=== PATIENT | male | born 1970 | race Caucasian/White ===

== ENCOUNTER 2018-09-03 15:31 | Inpatient (IN) ==
--- NOTE | 2018-09-03 15:59 | Emergency Department Note ---
Animal Bite HPI - General Chief Complaint: Animal Bite Stated Complaint: multiple severe dog bites to left leg Time Seen by Provider: 09/03/18 15:39 Source: patient Mode of arrival: ambulatory Limitations: no limitations - History of Present Illness HPI Narrative: severe dog bites to left leg/knee. 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 Patient was seen here 4 days ago for a dog bite to the left arm and had multiple lacerations and sutures, it then got infected despite oral antibiotics and he has been doing IV outpatient vancomycin therapy with some improvement however he has been slight improvement and that still significantly red and swollen. 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 States he just got this [facility] ago [facility] but no results immunizations are current. States the dog has already killed a cat and bit him severely twice. Law enforcement was notified ([facility]). Bleeding controlled with pressure. Tetanus current. no other home treatments - Related Data Previous Rx's Medication Instructions Recorded Ondansetron [Zofran ODT] 4 mg SL Q4-6HP PRN #20 tab 08/28/18 HYDROcodone/APAP 5/325MG [[place] 1 tab PO Q6HP PRN #15 tab 09/01/18 5-325Mg] HYDROcodone/APAP 5/325MG [[place] 1 tab PO Q4HP PRN #20 tab 09/05/18 5-325Mg] Linezolid [Zyvox] 600 mg PO Q12 #24 tab 09/05/18 Rabies Vacc, Human Diploid/Pf 2.5 unit IM WEEKLY #3 vial 09/05/18 [Imovax Rabies Vaccine Vial] amLODIPine [Norvasc] 5 mg PO DAILY #30 tab 09/05/18 Allergies Allergy/AdvReac Type Severity Reaction Status Date / Time No Known Drug Allergies Allergy Verified 09/03/18 15:32 Review of Systems All systems ED: reviewed and negative except as stated. Past Medical History - Past Medical History Medical history: Denies: cancer, CVA, hypertension, myocardial infarction, renal disease Psychiatric history: Reports: anxiety, depression Surgical history ED: Reports: no surgical history - Social History smoking status: Current every day smoker Alcohol use: Reports: Heavy (Usually a 6 pack/day) Drug use: Reports: none, marijuana (Smokes daily.) Physical Exam Limitations: no limitations General appearance: alert Head: atraumatic, normocephalic, normal inspection Eye: Present: normal appearance. Absent: conjunctival injection ENT: mucous membranes moist Chest: Present: symmetric chest wall rise Respiratory: Present: normal lung sounds bilaterally. Absent: respiratory distress, rales/crackles, accessory muscle use Cardiovascular: Present: regular rate, normal heart sounds Extremities: Present: full ROM, normal capillary refill. Absent: normal inspection (please see skin assessment for documentation LLE dog bites) Neurological: Present: alert, oriented X3 Psychiatric: Present: normal affect, normal mood Skin: Present: warm, dry, normal color, other (left arm with suture intact and wound well approximated but continues to have significant redness, edema and warmth throughout the right arm). Absent: intact (left knee with circumfrential lacerations anterior and posterior through dermis and epdidermis with minimal active bleeding, controlled with pressure. all flushed with saline) Course Course Narrative: Dr. Neil with wound care did come see the patient. Suggests his wound be washed out in the OR. He would like us to talk to the hospitalist about admission then they can call him to consult. Vital Signs Temperature 98.2 F 09/03/18 15:31 Pulse Rate 92 H 09/03/18 15:31 Respiratory Rate 16 09/03/18 15:31 Blood Pressure 113/79 09/03/18 15:31 Pulse Oximetry (%) 97 09/03/18 15:31 Temperature 98.6 F 09/05/18 10:48 Pulse Rate 80 09/05/18 10:48 Respiratory Rate 16 09/05/18 10:48 Blood Pressure 148/87 09/05/18 10:48 Pulse Oximetry (%) 98 09/05/18 10:48 Animal Bite - Lab Data Lab results reviewed: Yes I reviewed the patient's lab results. Result diagrams: 09/04/18 03:35 09/05/18 03:40 Lab Results 09/03/18 09/03/18 09/03/18 Range/Units 16:05 16:05 16:05 WBC 8.5 (4.5-11.0) K/mcL RBC 4.01 L (4.50-5.90) M/mcL Hgb 13.4 L (13.5-16.5) g/dL Hct 40.0 L (41.0-55.0) % MCV 99.8 (80.0-100.0) fL MCH 33.6 (26.0-34.0) pg MCHC 33.6 (31.0-36.0) g/dL RDW 14.5 (11.5-14.5) % Plt Count 173 (140-440) K/mcL MPV 8.9 (7.4-10.4) fL Gran % 67.0 (38.0-78.0) % Lymph % (Auto) 23.1 (15.5-49.0) % Becker % (Auto) 8.6 (1.0-12.0) % Eos % (Auto) 1.1 (0.0-7.0) % Baso % (Auto) 0.2 (0.0-2.0) % Gran # 5.7 (1.8-8.0) K/mcL Lymph # (Auto) 2.0 (1.5-4.8) K/mcL Becker # (Auto) 0.7 (0.1-0.9) K/mcL Eos # (Auto) 0.1 (0.0-0.7) K/mcL Baso # (Auto) 0 (0.0-0.3) K/mcL PT (11.9-14.5) sec INR (0.9-1.1) Sodium 143 (133-145) mmol/L Potassium 3.9 (3.3-5.1) mmol/L Chloride 103 (96-108) mmol/L Carbon Dioxide 23 (22-30) mmol/L Anion Gap 17.0 H (8-16) BUN 2 L (6-20) mg/dl Creatinine 0.5 L (0.7-1.2) mg/dl GFR Calculation 130 Glucose 122 H (70-105) mg/dL Calcium 8.4 L (8.6-10.4) mg/dl Total Bilirubin 0.5 (0.0-1.0) mg/dL AST 42 H (0-37) U/l ALT 27 (0-40) U/l Alkaline Phosphatase 103 (39-117) U/L Total Protein 5.9 (5.9-8.4) gm/dL Albumin 3.4 (3.2-5.2) gm/dL Globulin 2.5 (2.2-3.7) gm/dL Albumin/Globulin Ratio 1.4 (1.0-2.3) Ethyl Alcohol 0.275 H (<0.010) gm/dl 09/03/18 Range/Units 16:05 WBC (4.5-11.0) K/mcL RBC (4.50-5.90) M/mcL Hgb (13.5-16.5) g/dL Hct (41.0-55.0) % MCV (80.0-100.0) fL MCH (26.0-34.0) pg MCHC (31.0-36.0) g/dL RDW (11.5-14.5) % Plt Count (140-440) K/mcL MPV (7.4-10.4) fL Gran % (38.0-78.0) % Lymph % (Auto) (15.5-49.0) % Becker % (Auto) (1.0-12.0) % Eos % (Auto) (0.0-7.0) % Baso % (Auto) (0.0-2.0) % Gran # (1.8-8.0) K/mcL Lymph # (Auto) (1.5-4.8) K/mcL Becker # (Auto) (0.1-0.9) K/mcL Eos # (Auto) (0.0-0.7) K/mcL Baso # (Auto) (0.0-0.3) K/mcL PT 12.8 (11.9-14.5) sec INR 1.0 (0.9-1.1) Sodium (133-145) mmol/L Potassium (3.3-5.1) mmol/L Chloride (96-108) mmol/L Carbon Dioxide (22-30) mmol/L Anion Gap (8-16) BUN (6-20) mg/dl Creatinine (0.7-1.2) mg/dl GFR Calculation Glucose (70-105) mg/dL Calcium (8.6-10.4) mg/dl Total Bilirubin (0.0-1.0) mg/dL AST (0-37) U/l ALT (0-40) U/l Alkaline Phosphatase (39-117) U/L Total Protein (5.9-8.4) gm/dL Albumin (3.2-5.2) gm/dL Globulin (2.2-3.7) gm/dL Albumin/Globulin Ratio (1.0-2.3) Ethyl Alcohol (<0.010) gm/dl Disposition Pt seen by REFUGE MANAGER/PA only: Yes Clinical Impression: Dog bite Disposition: Xfer As Inpt ([facility]) Condition: Fair
--- NOTE | 2018-09-03 16:08 | XRay Report ---
CLINICAL INFORMATION: preop COMPARISON: None. FINDINGS: The heart size, mediastinum and pulmonary vessels are unremarkable. The lungs are clear. There are no effusions. The bones and soft tissues are within normal limits. IMPRESSION: Normal chest. Interpreted and Authenticated by: Wale Whyte 09/03/18
[2018-09-03] MEDS ORDERED: 0.9 % SODIUM CHLORIDE 1,000 ML IV ONE (16:12)
[2018-09-03] MEDS ORDERED: HYDROmorphone 2 MG/ML VIAL IV ONE (16:12)
--- NOTE | 2018-09-03 16:26 | Emergency Department Note ---
ED Note Addendum Note Addendum: Agree with the need for consult with wound care. Patient currently getting vancomycin has had another bite from his dog and was evaluated by Dr. Murillo.
[2018-09-03 16:37] LABS: Basophils # (Auto) 0 K/mcL (0.0-0.3); Basophils % (Auto) 0.2 % (0.0-2.0); Eosinophils # (Auto) 0.1 K/mcL (0.0-0.7); Eosinophils % (Auto) 1.1 % (0.0-7.0); Hemoglobin 13.4 g/dL (13.5-16.5); Lymphocytes % (Auto) 23.1 % (15.5-49.0); Mean Cell Volume 99.8 fL (80.0-100.0); Mean Corpuscular HGB Conc 33.6 g/dL (31.0-36.0); Mean Platelet Volume 8.9 fL (7.4-10.4); Monocytes # (Auto) 0.7 K/mcL (0.1-0.9); Monocytes % (Auto) 8.6 % (1.0-12.0); Platelet Count 173 K/mcL (140-440); RBC 4.01 M/mcL (4.50-5.90); Red Cell Distribution Width 14.5 % (11.5-14.5); WBC 8.5 K/mcL (4.5-11.0)
[2018-09-03 16:43] LABS: Prothrombin Time 12.8 sec (11.9-14.5)
[2018-09-03 16:58] LABS: Alcohol,Blood 0.275 gm/dl (<0.010)
[2018-09-03 17:09] LABS: ALT/SGPT 27 U/l (0-40); AST/SGOT 42 U/l (0-37); Albumin 3.4 gm/dL (3.2-5.2); Albumin/Globulin Ratio 1.4 (1.0-2.3); Alkaline Phosphatase 103 U/L (39-117); Bilirubin,Total 0.5 mg/dL (0.0-1.0); Blood Urea Nitrogen 2 mg/dl (6-20); Calcium 8.4 mg/dl (8.6-10.4); Carbon Dioxide 23 mmol/L (22-30); Chloride 103 mmol/L (96-108); Globulin 2.5 gm/dL (2.2-3.7); Glomerular Filtration Rate 130; Glucose 122 mg/dL (70-105); Potassium 3.9 mmol/L (3.3-5.1); Sodium 143 mmol/L (133-145)
--- NOTE | 2018-09-03 17:20 | XRay Report ---
CLINICAL INFORMATION: puncture wounds dog bite COMPARISON: None. FINDINGS: No osseous abnormality. The patellofemoral and tibiofemoral joints are normal with alignment without arthritic change. Extensive gas seen in the posterior and posterior lateral soft tissues over the distal femur. This may be atmospheric from the puncture wound or due to gas-forming organism. IMPRESSION: Extensive soft tissue swelling and gas in the posterior lateral soft tissues. Gas is typically atmospheric related to skin penetration; however, a gas-forming organism causing infection is not excluded. Interpreted and Authenticated by: Wale Whyte 09/03/18
--- NOTE | 2018-09-03 17:48 | Internal Med History&Physical ---
Medical - H&P: HPI Patient information: Note initiated : 09/03/18 at 5:43 pm Service Date, if different from initiated Date: [] Patient: Wale Rossi 48 y/o M admitted on for multiple severe dog bites to left leg. Chief Complaint: [] History of present illness: Mr. Rossi is a 48 year old M 48-year-old male presents the ED with bites the left leg and knee from his friend's dog. The story seems to change to one point it was his dog and now it is his friend's dog and some strangers dog bit him on the arm 6 days ago. Seen in the ED 4 days prior for bite on arm with multiple lacerations then got infected and was switched from Augmentin to IV vancomycin. Per the patient his arm pain/swelling and redness is improving. Dr. narciso pham from the ED who saw the patient would like to take patient to the OR tomorrow for washout. Patient states the first bite happened in a parking lot at [employer] by a strangers dog. Says the most recent attack was from a dog gets a half breed pit bull and it was his friend's dog in his own house. Denies fevers or chills. Had a tetanus shot last week. Review of Systems: Pertinent positives as above. Denies headache/fever/chills/nausea/vomit ing/chest or abdominal pain/cough/dyspnea/diarrhea. Remaining 10 point review of system reviewed negative Medical - H&P: PMH Medical history: - Past Medical History Medical history: Tobacco abuse, alcohol use denies: cancer, CVA, hypertension, myocardial infarction, renal disease Psychiatric history: Reports: anxiety, depression Surgical history ED: Reports: no surgical history - Social History smoking status: Current every day smoker pack per day Alcohol use: Reports: The notes report 6 pack a day but he tells me it is 2-3 b eers a day Drug use: Reports: none, marijuana (Smokes daily.) Medical - H&P: Meds Home Medications Medication Instructions Recorded Confirmed Type Clindamycin HCl [Cleocin] 300 mg PO QID 10 Days #40 cap 08/25/17 09/01/18 Rx Amoxicillin/Potassium Clav 875 mg PO Q12H #14 tab 08/28/18 09/01/18 Rx [Augmentin] Ondansetron [Zofran ODT] 4 mg SL Q4-6HP PRN #20 tab 08/28/18 09/01/18 Rx oxyCODONE/APAP [Percocet 5-325 mg] 1 tab PO Q4H PRN #16 tab 08/28/18 09/01/18 Rx HYDROcodone/APAP 5/325MG [[place] 1 tab PO Q6HP PRN #15 tab 09/01/18 09/01/18 Rx 5-325Mg] Allergies Allergy/AdvReac Type Severity Reaction Status Date / Time No Known Drug Allergies Allergy Verified 09/03/18 15:32 Medical - H&P: Exam - Constitutional Vitals: Temp Pulse Resp BP Pulse Ox 98.2 F 74 18 129/80 98 09/03/18 15:31 09/03/18 17:32 09/03/18 17:32 09/03/18 17:32 09/03/18 17:32 Exam: General: Alert, Awake, No acute Distress Eyes/N/T: EOMI, PEERL, Head/Neck: neck supple, normocephalic atraumatic CV: RRR, No murmurs, Pulm: Clear b/l, no wheezing/rhonchi/rales Abd: soft, nontender, +BS x4 Ext: no clubbing/cyanosis. Left arm with sutures in place from previous laceration with surrounding erythema/edema/mild tenderness -all improved per the patient. Left knee with multiple lacerations, deep. Neuro: Alert, no focal deficits, moves all extremities, CN 2-12 grossly intact, symmetrical strength b/l upper/lower, sensations intact b/l upper/lower Skin: warm/dry Medical - H&P: Reslt - Labs CBC & Chem 7: 09/03/18 16:05 09/03/18 16:05 Labs: Short CBC 09/03/18 Range/Units 16:05 WBC 8.5 (4.5-11.0) K/mcL Hgb 13.4 L (13.5-16.5) g/dL Hct 40.0 L (41.0-55.0) % Plt Count 173 (140-440) K/mcL BMP 09/03/18 16:05 Sodium 143 Potassium 3.9 Chloride 103 Carbon Dioxide 23 BUN 2 L Creatinine 0.5 L Glucose 122 H Calcium 8.4 L Liver Function 09/03/18 Range/Units 16:05 Total Bilirubin 0.5 (0.0-1.0) mg/dL AST 42 H (0-37) U/l ALT 27 (0-40) U/l Alkaline Phosphatase 103 (39-117) U/L Albumin 3.4 (3.2-5.2) gm/dL Medical - H&P: A/P - Narrative A/P Narrative: A: *LLE lacerations from dog bite: *LUE wound infection recent dog bite: recently started on oupt IV vancomycin *Tobacco Abuse *ETOH use: * P: -Vanc/zosyn for now -BC, check PCT -CIWA -Dr. Benítez following, to OR in AM - -Smoking cessation counseling, nicotine patch -ppx: lovenox after OR washout,
[2018-09-03] MEDS ORDERED: cloNIDine HCL 0.1 MG TABLET PO PRN (18:25)
[2018-09-03] MEDS ORDERED: ACETAMINOPHEN 325 MG TABLET PO PRN (18:25)
[2018-09-03] MEDS ORDERED: LORazepam 2 MG/ML VIAL IV PRN (18:25)
[2018-09-03] MEDS ORDERED: chlordiazePOXIDE 25 MG CAPSULE PO PRN (18:25)
[2018-09-03] MEDS ORDERED: ONDANSETRON 4 MG/2 ML VIAL IV PRN (18:25)
[2018-09-03] MEDS ORDERED: IPRATROPIUM/ALBUTEROL 3 ML AMPUL.NEB NEB PRN (18:25)
[2018-09-03 18:42] LABS: Appearance,Urine CLEAR; Bacteria,Urine 0 /hpf (0); Bilirubin,Urine NEG (NEG); Color,Urine STRAW; Culture Indicated,Urine NO; Glucose,Urine (UA) NEGATIVE (NEG); Ketones,Urine NEG (NEG); Leukocyte Esterase,Urine NEG /uL (NEG); Mucus,Urine FEW /hpf (0); Nitrate,Urine NEG (NEG); Protein,Urine NEG (NEG); Specific Gravity,Urine 1.005 (1.000-1.035); Urine Blood NEG mg/dL (<0.03); Urine RBC 0 /hpf (0-1); Urine Squamous Epithelial Cell 0 /hpf (0-4); Urine WBC 1 /hpf (0-4); Urobilinogen,Urine NEG (NEG)
[2018-09-03] MEDS: 0.9 % SODIUM CHLORIDE 1,000 ML IV SCH (19:19)
[2018-09-03] MEDS: NICOTINE 21 MG PATCH TOPICAL SCH (19:41)
[2018-09-03] MEDS: PIPERACILLIN SODIUM/TAZOBACTAM 3.375 GM in DEXTROSE 5% IN WATER 50 ML IV SCH (19:41)
[2018-09-03] MEDS: 0.9 % SODIUM CHLORIDE 10 ML SYRINGE IV SCH ×2 (19:42→22:40)
[2018-09-03] MEDS: HYDROcodone/APAP 5/325MG TABLET PO PRN (20:13)
--- NOTE | 2018-09-03 21:12 | General Surgery Consult Note ---
History of Present Illness Patient information: Note initiated : 09/03/18 at 9:06 pm Service Date, if different from initiated Date: [] Patient: Wale Rossi 48 y/o M admitted on 09/03/18 for multiple severe dog bites to left leg. Chief Complaint: [] Consult date: 09/03/18 Requesting physician: César Veronica (Wound Care. LLE / LUE) History of present illness: 48/M Admitted via ER. H/O Infected dog bite to Left elbow area about 4 days ago. Sutured in ER. Started on oral antibiotics and later changed to IV Vancomycin. Patient was bitten by same dog earlier today, sustained multiple wounds over LEFT lateral knee and upper leg area. Seen in ER and admitted to Med/Surg floor for further care OR wash out and debridement. Reportedly, [facility] and vaccinated and immunizations are current. Patient was given tetanus toxoid injection. Patient smokes cigarettes, marijuana and drinks alcohol daily. 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 Medications and Allergies Home Medications Medication Instructions Recorded Confirmed Type Clindamycin HCl [Cleocin] 300 mg PO QID 10 Days #40 cap 08/25/17 09/03/18 Rx Amoxicillin/Potassium Clav 875 mg PO Q12H #14 tab 08/28/18 09/03/18 Rx [Augmentin] Ondansetron [Zofran ODT] 4 mg SL Q4-6HP PRN #20 tab 08/28/18 09/03/18 Rx HYDROcodone/APAP 5/325MG [[place] 1 tab PO Q6HP PRN #15 tab 09/01/18 09/03/18 Rx 5-325Mg] Allergies Allergy/AdvReac Type Severity Reaction Status Date / Time No Known Drug Allergies Allergy Verified 09/03/18 15:32 Exam Temp Pulse Resp BP Pulse Ox 97.8 F 61 16 168/84 97 09/03/18 19:20 09/03/18 19:20 09/03/18 19:20 09/03/18 19:20 09/03/18 19:20 - General physical appearance well developed, well nourished, no distress, moderate pain - Eyes PERRL, normal ocular movement - ENT normal pinna, normal nares, normal mucosa, no congestion, poor long-term - Head Head exam IM: Present: atraumatic, normal inspection - Neck no masses, no bruits, no venous distension - Cardiovascular Cardiovascular exam IM: Present: normal rate and rhythm - Respiratory normal expansion - Abdomen Abdomen: Present: soft, non tender, bowel sounds - Integumentary Present: other (Resolving inflammatory changes Left Lateral elbow and upper forearm. Multiple laceration LEFT lateral knee and upper leg area, full thickness . Currently NO active bleeders, NO draiange and NO crepitation.) - Neurologic Present: other (C/O Decreased snsation and numbness arouns LEFT 4/5 finger tips. IMPROVING .) - Musculoskeletal Present: normal gait - Psychiatric Present: oriented to time, oriented to person, oriented to place, speech is normal Results - Labs 09/03/18 16:05 09/03/18 16:05 Abnormal lab results 09/03/18 09/03/18 09/03/18 Range/Units 16:05 16:05 16:05 RBC 4.01 L (4.50-5.90) M/mcL Hgb 13.4 L (13.5-16.5) g/dL Hct 40.0 L (41.0-55.0) % Anion Gap 17.0 H (8-16) BUN 2 L (6-20) mg/dl Creatinine 0.5 L (0.7-1.2) mg/dl Glucose 122 H (70-105) mg/dL Calcium 8.4 L (8.6-10.4) mg/dl AST 42 H (0-37) U/l Ethyl Alcohol 0.275 H (<0.010) gm/dl Diabetes panel 09/03/18 Range/Units 16:05 Sodium 143 (133-145) mmol/L Potassium 3.9 (3.3-5.1) mmol/L Chloride 103 (96-108) mmol/L Carbon Dioxide 23 (22-30) mmol/L BUN 2 L (6-20) mg/dl Creatinine 0.5 L (0.7-1.2) mg/dl Glucose 122 H (70-105) mg/dL Calcium 8.4 L (8.6-10.4) mg/dl AST 42 H (0-37) U/l ALT 27 (0-40) U/l Alkaline Phosphatase 103 (39-117) U/L Total Protein 5.9 (5.9-8.4) gm/dL Albumin 3.4 (3.2-5.2) gm/dL Calcium panel 09/03/18 Range/Units 16:05 Calcium 8.4 L (8.6-10.4) mg/dl Albumin 3.4 (3.2-5.2) gm/dL Pituitary panel 09/03/18 Range/Units 16:05 Sodium 143 (133-145) mmol/L Potassium 3.9 (3.3-5.1) mmol/L Chloride 103 (96-108) mmol/L Carbon Dioxide 23 (22-30) mmol/L BUN 2 L (6-20) mg/dl Creatinine 0.5 L (0.7-1.2) mg/dl Glucose 122 H (70-105) mg/dL Calcium 8.4 L (8.6-10.4) mg/dl Adrenal panel 09/03/18 Range/Units 16:05 Sodium 143 (133-145) mmol/L Potassium 3.9 (3.3-5.1) mmol/L Chloride 103 (96-108) mmol/L Carbon Dioxide 23 (22-30) mmol/L BUN 2 L (6-20) mg/dl Creatinine 0.5 L (0.7-1.2) mg/dl Glucose 122 H (70-105) mg/dL Calcium 8.4 L (8.6-10.4) mg/dl Total Bilirubin 0.5 (0.0-1.0) mg/dL AST 42 H (0-37) U/l ALT 27 (0-40) U/l Alkaline Phosphatase 103 (39-117) U/L Total Protein 5.9 (5.9-8.4) gm/dL Albumin 3.4 (3.2-5.2) gm/dL All other labs normal. Assessment and Plan (1) Dog bite of left arm Status: Acute Priority: High Qualifiers: Encounter type: initial encounter Qualified Code(s): S41.152A - Open bite of left upper arm, initial encounter; W54.0XXA - Bitten by dog, initial encounter (2) Laceration of left arm with complication Status: Acute Priority: High Qualifiers: Encounter type: initial encounter Qualified Code(s): S41.112A - Laceration without foreign body of left upper arm, initial encounter (3) Ulnar nerve abnormality Status: Acute Priority: Medium Qualifiers: Laterality: left Qualified Code(s): G56.22 - Lesion of ulnar nerve, left upper limb (4) Infected dog bite Status: Acute Priority: High Comment: LEFT LOWER EXTREMITY SKIN AND SUB CUTNEOUS TISSUE along latral knee, upper leg area . Multiple full thickness woundsbetween 2 to 4 CM sizes. No bleeding at this time. NEEDS pulse lavage irrigation, debridement and suturing in OR.
[2018-09-04] MEDS: 0.9 % SODIUM CHLORIDE 1,000 ML IV SCH (00:05)
[2018-09-04] MEDS: PIPERACILLIN SODIUM/TAZOBACTAM 3.375 GM in DEXTROSE 5% IN WATER 50 ML IV SCH ×5 (00:42→23:12)
[2018-09-04] MEDS: HYDROcodone/APAP 5/325MG TABLET PO PRN ×3 (00:47→23:12)
[2018-09-04] MEDS: 0.9 % SODIUM CHLORIDE 10 ML SYRINGE IV SCH ×3 (05:33→20:44)
[2018-09-04 05:34] LABS: Basophils # (Auto) 0 K/mcL (0.0-0.3); Basophils % (Auto) 0.2 % (0.0-2.0); Eosinophils # (Auto) 0 K/mcL (0.0-0.7); Eosinophils % (Auto) 0.2 % (0.0-7.0); Granulocytes % (Auto) 79.3 % (38.0-78.0); Lymphocytes # (Auto) 1.3 K/mcL (1.5-4.8); Lymphocytes % (Auto) 11.3 % (15.5-49.0); Mean Cell Volume 100.7 fL (80.0-100.0); Mean Corpuscular HGB Conc 33.3 g/dL (31.0-36.0); Mean Platelet Volume 9.3 fL (7.4-10.4); Platelet Count 174 K/mcL (140-440); RBC 3.87 M/mcL (4.50-5.90); Red Cell Distribution Width 14.4 % (11.5-14.5); WBC 11.3 K/mcL (4.5-11.0)
[2018-09-04 05:59] LABS: ALT/SGPT 28 U/l (0-40); AST/SGOT 41 U/l (0-37); Albumin 3.2 gm/dL (3.2-5.2); Albumin/Globulin Ratio 0.9 (1.0-2.3); Alkaline Phosphatase 107 U/L (39-117); Bilirubin,Direct 0.3 mg/dL (0.0-0.3); Blood Urea Nitrogen 4 mg/dl (6-20); Calcium 8.3 mg/dl (8.6-10.4); Carbon Dioxide 23 mmol/L (22-30); Chloride 100 mmol/L (96-108); Globulin 3.5 gm/dL (2.2-3.7); Glomerular Filtration Rate 130; Glucose 98 mg/dL (70-105); Lactate Dehydrogenase 317 U/L (94-250); Magnesium 1.6 mg/dL (1.6-2.5); Phosphorous 3.7 mg/dL (2.7-4.5); Potassium 3.9 mmol/L (3.3-5.1); Sodium 138 mmol/L (133-145); Triglycerides 60 mg/dl (<150); Uric Acid 1.9 mg/dL (2.5-8.0)
[2018-09-04] MEDS ORDERED: VANCOMYCIN PER PHARMACY IV SCH (07:13)
--- NOTE | 2018-09-04 07:13 | Internal Med Progress Note ---
Medical - PN: Subj Patient information: Note initiated : 09/04/18 at 7:11 am Service Date, if different from initiated Date: [] Patient: Wale Rossi 48 y/o M admitted on 09/03/18 for multiple severe dog bites to left leg. Chief Complaint: [] Interval history: Mr. Rossi is a 48 year old M 48-year-old male presents the ED with bites the left leg and knee from his friend's dog. The story seems to change to one point it was his dog and now it is his friend's dog and some strangers dog bit him on the arm 6 days ago. Seen in the ED 4 days prior for bite on arm with multiple lacerations then got infected and was switched from Augmentin to IV vancomycin. Per the patient his arm pain/swelling and redness is improving. Dr. narciso pham from the ED who saw the patient would like to take patient to the OR tomorrow for washout. Patient states the first bite happened in a parking lot at [employer] by a strangers dog. Says the most recent attack was from a dog gets a half breed pitbull and it was his friend's dog in his own house. Denies fevers or chills. Had a tetanus shot last week. 09/04 Slept okay. No new complaints. Lacerations wrapped in dressing. Review of Systems: denies headache/fever/chills/nausea/vomiting/chest or abdominal pain/cough/dyspnea/diarrhea. Otherwise see above. - Constitutional Vitals: Vital Signs Temp Pulse Resp BP Pulse Ox 98.6 F 73 18 166/92 99 09/04/18 03:25 09/04/18 03:25 09/04/18 03:25 09/04/18 03:25 09/04/18 03:25 Period Temp Pulse Resp BP Sys/Estrada Pulse Ox Last 24 Hr 97.8 F-98.8 F 61-92 16-18 113-168/79-103 95-99 Intake and Output 09/03/18 09/04/18 09/04/18 21:59 05:59 13:59 Intake Total 2850 1210 Output Total 1200 1450 Balance 1650 -240 Weight 60.555 kg Intake & Output: Intake & Output 09/03/18 09/04/18 09/04/18 21:59 05:59 13:59 Intake Total 2850 1210 Output Total 1200 1450 Balance 1650 -240 Weight 60.555 kg Intake: IV 1050 50 Sodium Chloride 0.9% 1,000 ml @ 1000 Wide Open IV BOLUS ONE Rx#: [id number] Zosyn 3.375 gm In Dextrose 5% 50 50 in Water 50 ml @ 100 mls/hr IV Q6H [facility] Rx#:[id number] Oral 800 1160 Other 1000 Output: Void Amount 1200 1450 Other: Urine Appearance Clear Clear Urine Color Pale Dark Yellow Urine Odor Normal Normal # Voids 1 Exam: General: Alert, Awake, No acute Distress Eyes/N/T: EOMI, Head/Neck: neck supple, CV: RRR, No murmurs, Pulm: Clear b/l, no wheezing/rhonchi/rales Abd: soft, nontender, +BS x4 Ext: no clubbing/cyanosis. Left arm with sutures in place from previous laceration with surrounding erythema/edema/mild tenderness, improved per patient . left knee with multiple lacerations, deep. Neuro: Alert, no focal deficits, moves all extremities, Skin: warm/dry Medical - PN: Obj Da - Labs CBC & Chem 7: 09/04/18 03:35 09/04/18 03:35 Labs: Abnormal Lab Results 09/04/18 09/04/18 09/03/18 03:35 03:35 16:05 WBC 11.3 H RBC 3.87 L Hgb 13.0 L Hct 39.0 L MCV 100.7 H Gran % 79.3 H Lymph % (Auto) 11.3 L Gran # 9.0 H Lymph # (Auto) 1.3 L [place] # (Auto) 1.0 H Anion Gap BUN 4 L Creatinine 0.5 L Glucose Uric Acid 1.9 L Calcium 8.3 L GGT 99 H AST 41 H Lactate Dehydrogenase 317 H Albumin/Globulin Ratio 0.9 L Ethyl Alcohol 0.275 H 09/03/18 09/03/18 16:05 16:05 WBC RBC 4.01 L Hgb 13.4 L Hct 40.0 L MCV Gran % Lymph % (Auto) Gran # Lymph # (Auto) [place] # (Auto) Anion Gap 17.0 H BUN 2 L Creatinine 0.5 L Glucose 122 H Uric Acid Calcium 8.4 L GGT AST 42 H Lactate Dehydrogenase Albumin/Globulin Ratio Ethyl Alcohol Meds: Medications Acetaminophen (Tylenol) 650 mg PO Q6HP PRN PRN Reason: PAIN/FEVER > 101 Hydrocodone Bitart/Acetaminophen ([place] 5/325mg) 1 tab PO Q4HP PRN PRN Reason: PAIN LEVEL 3-6 Last Admin: 09/04/18 00:47 Dose: 1 tab Documented by: Albuterol/Ipratropium (Duoneb) 3 ml NEB Q4HRT PRN PRN Reason: Bronchospasm Chlordiazepoxide HCl (Librium) 50 mg PO Q4HP PRN PRN Reason: Alcohol Withdrawal Last Admin: 09/04/18 04:04 Dose: 50 mg Documented by: Clonidine HCl (Catapres) 0.1 mg PO Q4HP PRN PRN Reason: Alcohol Withdrawal Folic Acid (Folic Acid) 1 mg PO DAILY [facility] Sodium Chloride (Sodium Chloride 0.9%) 1,000 mls @ 75 mls/hr IV .[id number] [facility] Stop: 09/04/18 07:19 Last Admin: 09/04/18 00:05 Dose: Not Given Documented by: Piperacillin Sod/Tazobactam (Sod 3.375 gm/ Dextrose) 50 mls @ 100 mls/hr IV Q6H [facility]; Protocol Last Admin: 09/04/18 05:35 Dose: 100 mls/hr Documented by: Gentamicin Sulfate 80 mg/Clindamycin Phosphate 600 mg/Bacitracin 50,000 unit/ Sodium Chloride 3,006 mls @ 0 mls/hr IRR PREOP [facility] Stop: 09/04/18 16:00 Iron Carb/Multivit/Substance Abuse Therapist/Folic Acid (Multivitamin W/Minerals) 1 tab PO DAILY [facility] Lorazepam (Ativan) 0 mg IV Q4HP PRN; Protocol PRN Reason: Alcohol Withdrawal Last Admin: 09/04/18 04:21 Dose: 1 mg Documented by: Morphine Sulfate (Morphine) 1 - 4 mg IV Q3HP PRN PRN Reason: PAIN LEVEL > 6 Last Admin: 09/04/18 04:05 Dose: 2 mg Documented by: Nicotine (Nicoderm) 21 mg TOPICAL DAILY@1000 [facility] Last Admin: 09/03/18 19:41 Dose: 21 mg Documented by: Ondansetron HCl (Zofran) 4 mg IV Q6HP PRN PRN Reason: Nausea And Vomiting Last Admin: 09/03/18 22:46 Dose: 4 mg Documented by: Sodium Chloride (Saline Flush) 10 ml IV Q8 [facility] Last Admin: 09/04/18 05:33 Dose: Not Given Documented by: Thiamine HCl (Vitamin B1) 100 mg PO QDAY [facility] Medical - PN: A/P - Time Spent With Patient Total time spent is greater than 50% in coordination of care (as documented) at patient's floor/unit and/or counseling patient: - Narrative A/P Narrative: A: *LLE lacerations from dog bite: *LUE wound infection recent dog bite: recently started on oupt IV vancomycin *Tobacco Abuse *ETOH use: * P: -Vanc/zosyn for now -BC pending -FUNMI -Dr. Benítez following, to OR today -Smoking cessation counseling, nicotine patch -ppx: lovenox after OR washout, Medical - PN: Qual - Stroke Symptom Onset Unknown: No - VTE Deep Vein Thrombosis/Pulmonary Embolism Present on Admission: No
[2018-09-04 08:14] LABS: Band Neutrophils % 3 % (0-10); Eosinophils % (Manual) 1 % (0-7); Lymphocytes % 11 % (15-49); Macrocytosis 1+ (NONE SEEN); Monocytes % (Manual) 9 % (1-12); Platelet Estimate NORMAL (NORMAL); Polychromasia 1+ (NONE SEEN); RBC Morphology ABNORM (NORMAL); Segmented Neutrophils % 76 % (38-78)
[2018-09-04] MEDS: VANCOMYCIN 1,500 MG in 0.9 % SODIUM CHLORIDE 500 ML IV SCH ×2 (08:16→20:44)
[2018-09-04] MEDS: THIAMINE 100 MG TABLET PO SCH (08:24)
[2018-09-04] MEDS: MULTIVIT,THER IRON,CA,FA & MIN 1 TABLET PO SCH (08:24)
[2018-09-04] MEDS: FOLIC ACID 1 MG TABLET PO SCH (08:24)
[2018-09-04] MEDS ORDERED: RABIES IMMUNE GLOBULIN 300 UNIT/2 ML VIAL IM ONE (10:30)
[2018-09-04] MEDS ORDERED: RABIES VACC, HUMAN DIPLOID/PF 2.5 UNIT VIAL IM ONE (11:00)
[2018-09-04] MEDS: NICOTINE 21 MG PATCH TOPICAL SCH (11:41)
[2018-09-04] MEDS ORDERED: GENTAMICIN SULFATE 80 MG, CLINDAMYCIN 600 MG, BACITRACIN 50,000 UNIT in SODIUM CHLORIDE... IRR SCH (14:00)
[2018-09-04] MEDS ORDERED: MIDAZOLAM 2 MG/2 ML VIAL IV ONE (15:15)
[2018-09-04] MEDS ORDERED: KETAMINE 100 MG/ML ML IV ONE (15:15)
[2018-09-04] MEDS ORDERED: PROPOFOL 200 MG/20 ML VIAL IV ONE (15:15)
[2018-09-04] MEDS ORDERED: LIDOCAINE HCL/PF 100 MG/5 ML SYRINGE IV ONE (15:15)
[2018-09-04] MEDS ORDERED: GLYCOPYRROLATE 0.2 MG/ML VIAL IV ONE (15:15)
[2018-09-04] MEDS ORDERED: fentaNYL 250 MCG/5 ML VIAL IV ONE (15:15)
[2018-09-04] MEDS ORDERED: ONDANSETRON 4 MG/2 ML VIAL IV ONE (15:15)
[2018-09-04] MEDS ORDERED: LACTATED RINGERS 1,000 ML IV SCH (16:00)
[2018-09-04] MEDS ORDERED: MEPERIDINE 25 MG/ML SYRINGE IV PRN (16:00)
[2018-09-04] MEDS ORDERED: ONDANSETRON 4 MG/2 ML VIAL IV PRN (16:00)
[2018-09-04] MEDS ORDERED: fentaNYL 100 MCG/2 ML VIAL IV PRN (16:00)
[2018-09-04] MEDS ORDERED: METHOCARBAMOL 1,000 MG/10 ML VIAL IV PRN (16:00)
[2018-09-04] MEDS ORDERED: IPRATROPIUM/ALBUTEROL 3 ML AMPUL.NEB NEB PRN (16:00)
[2018-09-04] MEDS ORDERED: ACETAMINOPHEN 900 MG/90 ML BOTTLE IV ONE (16:00)
[2018-09-04] MEDS ORDERED: LORazepam 2 MG/ML VIAL IV ONE (16:30)
[2018-09-04] MEDS: METOPROLOL TARTRATE 5 MG/5 ML VIAL IV SCH ×2 (16:44→17:02)
--- NOTE | 2018-09-04 17:00 | Brief Operative Note ---
Date of procedure: 09/05/18 Pre-op diagnosis: Acute Dog bite wounds around Left LEFT knee and upper leg. Post-op diagnosis: same Procedure: Wound Explorations, Debridement, Biopsies of devitalized / torn muscle Lateral Gastrocnemius and blood vessels attached to muscle. Pulse lavage irrigations, Wounds approximated with 2-0 Prolene. Palpable DP / PT pulses. Grafts/Implants: No Anesthesia: GETA Findings: Wound Measurements: Left lateral knee / Lower thigh thigh 3.5 x 2 x 3.0 Extends to underlying Muscle and Tendon ( Gastrocnemius ) Left upper lateral leg 2 x 1 x 1.5 Extends to underlying muscle Left medial below patella area 4 x 2 x 0.5 Extends to tendon BACK OF KNEE / Popliteal region 6 x 2.5 x 3.5 CM TORN Muscle Gastrocnemius PROCEDURE: Multiple open wounds exploration ( Dog Bite ) Lavage / Antibiotic irrigation of wounds and POPLITEAL fossa wound. Approximation of muscle / tendon and OPEN WOUND EDGES. Vicryl and Prolene sutures Complications: none Surgeon: Edmar Benítez Estimated blood loss (cc): 30 Specimens Removed/Pathology: other Condition: stable Disposition: PACU (Procedure well tolerated.)
[2018-09-04] MEDS ORDERED: ACETAMINOPHEN 325 MG TABLET PO PRN (17:03)
[2018-09-04] MEDS ORDERED: KETOROLAC TROMETHAMINE 10 MG TABLET PO PRN (17:04)
[2018-09-04] MEDS ORDERED: hydrALAZINE 20 MG/ML VIAL IV ONE (17:08)
[2018-09-04] MEDS ORDERED: hydrALAZINE 20 MG/ML VIAL ONE (17:09)
[2018-09-04] MEDS ORDERED: cloNIDine HCL 0.1 MG TABLET PO PRN (17:20)
[2018-09-04] MEDS ORDERED: hydrALAZINE 20 MG/ML VIAL IV PRN (17:21)
[2018-09-04] MEDS ORDERED: LABETALOL 5 MG/ML ML IV PRN (17:22)
[2018-09-04] MEDS: ENOXAPARIN 40 MG/0.4 ML SYRINGE SQ SCH (17:53)
[2018-09-05] MEDS: PIPERACILLIN SODIUM/TAZOBACTAM 3.375 GM in DEXTROSE 5% IN WATER 50 ML IV SCH (06:05)
[2018-09-05] MEDS: 0.9 % SODIUM CHLORIDE 10 ML SYRINGE IV SCH (06:06)
[2018-09-05 06:07] LABS: Blood Urea Nitrogen 4 mg/dl (6-20); Calcium 8.2 mg/dl (8.6-10.4); Carbon Dioxide 22 mmol/L (22-30); Chloride 100 mmol/L (96-108); Glomerular Filtration Rate 121; Glucose 85 mg/dL (70-105); Potassium 3.9 mmol/L (3.3-5.1); Sodium 136 mmol/L (133-145)
--- NOTE | 2018-09-05 06:56 | Internal Med Progress Note ---
Medical - PN: Subj Patient information: Note initiated : 09/05/18 at 6:53 am Service Date, if different from initiated Date: [] Patient: Wale Rossi 48 y/o M admitted on 09/03/18 for multiple severe dog bites to left leg. Chief Complaint: [] Interval history: Mr. Rossi is a 48 year old M 48-year-old male presents the ED with bites the left leg and knee from his friend's dog. The story seems to change to one point it was his dog and now it is his friend's dog and some strangers dog bit him on the arm 6 days ago. Seen in the ED 4 days prior for bite on arm with multiple lacerations then got infected and was switched from Augmentin to IV vancomycin. Per the patient his arm pain/swelling and redness is improving. Dr. benítez contact from the ED who saw the patient would like to take patient to the OR tomorrow for washout. Patient states the first bite happened in a parking lot at [employer] by a strangers dog. Says the most recent attack was from a dog gets a half breed pitbull and it was his friend's dog in his own house. Denies fevers or chills. Had a tetanus shot last week. 09/04 Slept okay. No new complaints. Lacerations wrapped in dressing. 09/05 No overnight events. Patient feeling well. Had washout yesterday by Dr. Benítez. She states his blood pressure runs high at home but he does not have a PCP and has not been on blood pressure medications in the past. Review of Systems: denies headache/fever/chills/nausea/vomiting/chest or abdominal pain/cough/dyspnea/diarrhea. Otherwise see above. - Constitutional Vitals: Vital Signs Temp Pulse Resp BP Pulse Ox 99.4 F H 84 20 168/96 98 09/05/18 06:32 09/05/18 03:50 09/05/18 06:32 09/05/18 06:32 09/05/18 06:32 Period Temp Pulse Resp BP Sys/Estrada Pulse Ox Last 24 Hr 97.9 F-99.4 F 76-104 12-25 127-186/79-116 97-100 Intake and Output 09/04/18 09/05/18 09/05/18 21:59 05:59 13:59 Intake Total 2840 2050 Output Total 1275 1675 400 Balance 1565 375 -400 Weight 58.513 kg Intake & Output: Intake & Output 09/04/18 09/05/18 09/05/18 21:59 05:59 13:59 Intake Total 2840 2050 Output Total 1275 1675 400 Balance 1565 375 -400 Weight 58.513 kg Intake: IV 140 550 Zosyn 3.375 gm In Dextrose 5% 50 50 in Water 50 ml @ 100 mls/hr IV Q6H [facility] Rx#:[id number] Vancomycin 1,500 mg In Sodium 500 Chloride 0.9% 500 ml @ 333.3 mls/hr IV Q12H [facility] Rx#: [id number] Oral 1500 IV - Manual Only 2700 Output: Void Amount 1275 1675 400 Other: Meal Dinner Percent of Meal Consumed 25% Urine Appearance Clear Clear Urine Color Dark Yellow Bright Yellow Pale Urine Odor Normal Normal Normal # Voids 0 Exam: General: Alert, Awake, No acute Distress Eyes/N/T: EOMI, Head/Neck: neck supple, CV: RRR, No murmurs, Pulm: Clear b/l, no wheezing/rhonchi/rales Abd: soft, nontender, +BS x4 Ext: no clubbing/cyanosis. Left arm with sutures in place from previous laceration with surrounding erythema/edema/mild tenderness, improved per patient . left knee with multiple lacerations, deep. Neuro: Alert, no focal deficits, moves all extremities, Skin: warm/dry Medical - PN: Obj Da - Labs CBC & Chem 7: 09/04/18 03:35 09/05/18 03:40 Labs: Abnormal Lab Results 09/05/18 09/04/18 09/04/18 03:40 03:35 03:35 WBC RBC Hgb Hct MCV Gran % Lymph % (Auto) Gran # Lymph # (Auto) [place] # (Auto) Lymphocytes % 11 L RBC Morphology Abnorm A Polychromasia 1+ A Macrocytosis 1+ A Anion Gap BUN 4 L 4 L Creatinine 0.6 L 0.5 L Glucose Uric Acid 1.9 L Calcium 8.2 L 8.3 L GGT 99 H AST 41 H Lactate Dehydrogenase 317 H Albumin/Globulin Ratio 0.9 L Ethyl Alcohol 09/04/18 09/03/1809/03/19 03:35 16:05 16:05 WBC 11.3 H RBC 3.87 L Hgb 13.0 L Hct 39.0 L MCV 100.7 H Gran % 79.3 H Lymph % (Auto) 11.3 L Gran # 9.0 H Lymph # (Auto) 1.3 L [place] # (Auto) 1.0 H Lymphocytes % RBC Morphology Polychromasia Macrocytosis Anion Gap 17.0 H BUN 2 L Creatinine 0.5 L Glucose 122 H Uric Acid Calcium 8.4 L GGT AST 42 H Lactate Dehydrogenase Albumin/Globulin Ratio Ethyl Alcohol 0.275 H 09/03/18 16:05 WBC RBC 4.01 L Hgb 13.4 L Hct 40.0 L MCV Gran % Lymph % (Auto) Gran # Lymph # (Auto) [place] # (Auto) Lymphocytes % RBC Morphology Polychromasia Macrocytosis Anion Gap BUN Creatinine Glucose Uric Acid Calcium GGT AST Lactate Dehydrogenase Albumin/Globulin Ratio Ethyl Alcohol Meds: Medications Acetaminophen (Tylenol) 650 mg PO Q4-6HP PRN PRN Reason: PAIN/FEVER > 101 Hydrocodone Bitart/Acetaminophen ([place] 5/325mg) 1 tab PO Q4HP PRN PRN Reason: PAIN LEVEL 3-6 Last Admin: 09/04/18 23:12 Dose: 1 tab Documented by: Albuterol/Ipratropium (Duoneb) 3 ml NEB Q4HRT PRN PRN Reason: Bronchospasm Chlordiazepoxide HCl (Librium) 50 mg PO Q4HP PRN PRN Reason: Alcohol Withdrawal Last Admin: 09/04/18 04:04 Dose: 50 mg Documented by: Clonidine HCl (Catapres) 0.1 mg PO Q4HP PRN PRN Reason: SBP>145 Last Admin: 09/04/18 17:46 Dose: 0.1 mg Documented by: Enoxaparin Sodium (Lovenox) 40 mg SQ DAILY [facility] Last Admin: 09/04/18 17:53 Dose: 40 mg Documented by: Folic Acid (Folic Acid) 1 mg PO DAILY [facility] Last Admin: 09/04/18 08:24 Dose: 1 mg Documented by: Hydralazine HCl (Apresoline) 0 mg IV Q2HP PRN PRN Reason: Hypertension Piperacillin Sod/Tazobactam (Sod 3.375 gm/ Dextrose) 50 mls @ 100 mls/hr IV Q6H [facility]; Protocol Last Admin: 09/05/18 06:05 Dose: 100 mls/hr Documented by: Vancomycin HCl 1,500 mg/ (Sodium Chloride) 500 mls @ 333.3 mls/hr IV Q12H [facility] Last Infusion: 09/04/18 22:20 Dose: Infused Documented by: Iron Carb/Multivit/[place]/Folic Acid (Multivitamin W/Minerals) 1 tab PO DAILY [facility] Last Admin: 09/04/18 08:24 Dose: 1 tab Documented by: Ketorolac Tromethamine (Toradol) 10 mg PO Q6HP PRN PRN Reason: Pain Labetalol HCl (Trandate) 0 mg IV Q2HP PRN PRN Reason: Hypertension Lorazepam (Ativan) 0 mg IV Q4HP PRN; Protocol PRN Reason: Alcohol Withdrawal Last Admin: 09/04/18 04:21 Dose: 1 mg Documented by: Morphine Sulfate (Morphine) 1 - 4 mg IV Q3HP PRN PRN Reason: PAIN LEVEL > 6 Last Admin: 09/04/18 12:46 Dose: 2 mg Documented by: Nicotine (Nicoderm) 21 mg TOPICAL DAILY@1000 [facility] Last Admin: 09/04/18 11:41 Dose: 21 mg Documented by: Ondansetron HCl (Zofran) 4 mg IV Q6HP PRN PRN Reason: Nausea And Vomiting Last Admin: 09/03/18 22:46 Dose: 4 mg Documented by: Sodium Chloride (Saline Flush) 10 ml IV Q8 [facility] Last Admin: 09/05/18 06:06 Dose: 10 ml Documented by: Thiamine HCl (Vitamin B1) 100 mg PO QDAY [facility] Last Admin: 09/04/18 08:24 Dose: 100 mg Documented by: Vancomycin HCl (Vancomycin Per Pharmacy) 1 order IV UD [facility]; Protocol Medical - PN: A/P - Time Spent With Patient Total time spent is greater than 50% in coordination of care (as documented) at patient's floor/unit and/or counseling patient: - Narrative A/P Narrative: A: *LLE/Knee multiple lacerations from dog bite: s/p washout by Dr. Benítez (09/04) *LUE wound infection recent dog bite: recently started on oupt IV vancomycin -Pt story changing, is adamant towards me that it was different animals, but to other staff story is changing to be the same dog *Tobacco Abuse: *ETOH use (unclear as to amount, would only admit to 2-3 beers/day to me): *HTN: Admits to elevated blood pressure at home, but does not have a PCP P: -Vanc/zosyn for now -BC pending -CIWA -HRIG/Vaccine given, d/c with remainder of vaccine regimen -Dr. Benítez following -start on norvasc 5mg -Smoking cessation counseling, nicotine patch -ppx: lovenox Medical - PN: Qual - Stroke Symptom Onset Unknown: No - VTE Deep Vein Thrombosis/Pulmonary Embolism Present on Admission: No
--- NOTE | 2018-09-05 08:58 | Discharge Summary ---
Medical - DS: Prov Patient information: Note initiated : 09/05/18 at 8:53 am Service Date, if different from initiated Date: [] Patient: Wale Rossi 48 y/o M admitted on 09/03/18 for multiple severe dog bites to left leg. Chief Complaint: [] Date of admission: 09/03/18 18:07 Discharge date: 09/05/18 Primary care physician: PCP No Consults: 09/03/18 Consult to Physician [CONS] Stat Comment: Consulting Provider: Edmar Benítez Reason For Exam: Physician to Consult Consult to Physician [CONS] Stat Comment: Consulting Provider: César Veronica Reason For Exam: Physician to Consult Medical - DS: Meds - Discharge Medications Prescriptions: amLODIPine [Norvasc] 5 mg PO DAILY #30 tablet HYDROcodone/APAP 5/325MG [[place] 5-325Mg] 1 tab PO Q4HP PRN #20 tablet PRN Reason: Pain Level 3-6 Linezolid [Zyvox] 600 mg PO Q12 #24 tablet Rabies Vacc, Human Diploid/Pf [Imovax Rabies Vaccine Vial] 2.5 unit IM WEEKLY #3 vial Active and Home Medications: Home Medications Clindamycin HCl [Cleocin] 300 mg PO QID 10 Days #40 cap 08/25/17 [Rx Confirmed 09/03/18 Last Taken Unknown] Amoxicillin/Potassium Clav [Augmentin] 875 mg PO Q12H #14 tab 08/28/18 [Rx Confirmed 09/03/18 Last Taken 09/03/18 09:00] Ondansetron [Zofran ODT] 4 mg SL Q4-6HP PRN #20 tab 08/28/18 [Rx Confirmed 09/03/18 Last Taken 09/01/18 18:00] HYDROcodone/APAP 5/325MG [[place] 5-325Mg] 1 tab PO Q6HP PRN #15 tab 09/01/18 [Rx Confirmed 09/03/18 Last Taken 09/03/18 09:00] Home Medications Ondansetron [Zofran ODT] 4 mg SL Q4-6HP PRN #20 tab 08/28/18 [Rx Confirmed 09/03/18 Last Taken 09/01/18 18:00] HYDROcodone/APAP 5/325MG [[place] 5-325Mg] 1 tab PO Q6HP PRN #15 tab 09/01/18 [Rx Confirmed 09/03/18 Last Taken 09/03/18 09:00] Linezolid [Zyvox] 600 mg PO Q12 #24 tablet 09/05/18 [Rx Last Taken Unknown] Rabies Vacc, Human Diploid/Pf [Imovax Rabies Vaccine Vial] 2.5 unit IM WEEKLY #3 vial 09/05/18 [Rx Last Taken Unknown] amLODIPine [Norvasc] 5 mg PO DAILY #30 tablet 09/05/18 [Rx Last Taken Unknown] Medical - DS: Hosp Hospital course: Mr. Rossi is a 48 year old M Mr. Rossi is a 48 year old M 48-year-old male presents the ED with bites the left leg and knee from his friend's dog. The story seems to change to one point it was his dog and now it is his friend's dog and some strangers dog bit him on the arm 6 days ago. Seen in the ED 4 days prior for bite on arm with multiple lacerations then got infected and was switched from Augmentin to IV vancomycin. Per the patient his arm pain/swelling and redness is improving. Dr. benítez contact from the ED who saw the patient would like to take patient to the OR tomorrow for washout. Patient states the first bite happened in a parking lot at [employer] by a strangers dog. Says the most recent attack was from a dog gets a half breed pitbull and it was his friend's dog in his own house. Denies fevers or chills. Had a tetanus shot last week. 09/04 Slept okay. No new complaints. Lacerations wrapped in dressing. 09/05 No overnight events. Patient feeling well. Had washout yesterday by Dr. Muniz. She states his blood pressure runs high at home but he does not have a PCP and has not been on blood pressure medications in the past. Discharge diagnosis: Dog bite with multiple deep lacerations and infection Secondary discharge diagnosis: Tobacco abuse alcohol use hypertension - Time Spent with Patient Total time spent providing and/or coordinating discharge services: Greater than 30 minutes Medical - DS: Exam - Constitutional Vitals: Vital Signs Temp Pulse Resp BP Pulse Ox 09/05/18 06:32 99.4 F H 20 168/96 98 09/05/18 03:50 98.7 F 84 16 158/95 99 09/04/18 23:05 98.2 F 80 16 137/84 98 09/04/18 20:00 79 127/82 09/04/18 19:45 89 137/79 09/04/18 18:29 99 H 133/87 09/04/18 18:15 90 132/91 09/04/18 18:00 95 H 154/94 09/04/18 17:45 83 152/97 99 09/04/18 17:30 93 H 151/85 97 09/04/18 17:15 97.9 F 77 13 157/104 100 09/04/18 17:04 97.9 F 76 15 172/102 100 09/04/18 16:50 97.9 F 87 18 176/100 98 09/04/18 16:40 98.0 F 104 H 12 176/101 100 09/04/18 16:35 98.6 F 99 H 15 183/107 100 09/04/18 16:30 99 H 25 H 178/110 99 09/04/18 16:25 97 H 14 186/116 100 09/04/18 16:22 98.8 F 104 H 16 186/105 100 09/04/18 12:00 98.1 F 16 157/98 99 Intake and Output 09/04/18 09/05/18 09/05/18 21:59 05:59 13:59 Intake Total 2840 2050 50 Output Total 1275 1675 400 Balance 1565 375 -350 Intake: IV 140 550 50 Zosyn 3.375 gm In Dextrose 5% 50 50 50 in Water 50 ml @ 100 mls/hr IV Q6H [facility] Rx#:[id number] Vancomycin 1,500 mg In Sodium 500 Chloride 0.9% 500 ml @ 333.3 mls/hr IV Q12H [facility] Rx#: [id number] Oral 1500 IV - Manual Only 2700 Output: Void Amount 1275 1675 400 Other: Meal Dinner Percent of Meal Consumed 25% Urine Appearance Clear Clear Urine Color Dark Yellow Bright Yellow Pale Urine Odor Normal Normal Normal # Voids 0 Weight 58.513 kg Medical - DS: Data Labs on day of discharge: Labs from last 24 hours 09/05/18 03:40 Sodium 136 Potassium 3.9 Chloride 100 Carbon Dioxide 22 Anion Gap 14.0 BUN 4 L Creatinine 0.6 L GFR Calculation 121 Glucose 85 Calcium 8.2 L Preliminary micro results at discharge 09/03/18 18:54 Blood Culture - Preliminary Blood 09/03/18 18:44 Blood Culture - Preliminary Blood Medical - DS: A/P - Patient/Caregiver Discharge Instructions Activity: increase activity as tolerated Diet: Regular Diet - Follow up Plan Follow up with: Lavern,PCP [Primary Care Provider] - Edmar Benítez MD [Physician] - Disposition: Home, Self-Care Prognosis: Fair Rehab Potential: Fair Overall status at discharge: patient is progressing back to baseline Medical - DS: Qual - VTE Deep Vein Thrombosis/Pulmonary Embolism Present on Admission: No
[2018-09-05] MEDS ORDERED: amLODIPine 5 MG TABLET PO SCH (09:00)
--- NOTE | 2018-09-05 09:13 | General Surgery Progress Note ---
Subjective Narrative: Note initiated : 09/05/18 at 9:10 am Service Date, if different from initiated Date: [] Patient: Wale Rossi 48 y/o M admitted on 09/03/18 for multiple severe dog bites to left leg. Chief Complaint: []Post Operative Day # 1. Looks good and feels well. PAIN left leg and knee region is less. OOB and ambulating. Ate breakfast. Keen to go home. Objective Temp Pulse Resp BP Pulse Ox 99.4 F H 84 20 168/96 98 09/05/18 06:32 09/05/18 03:50 09/05/18 06:32 09/05/18 06:32 09/05/18 06:32 AVSS. No changes YAYA. L/E: Dressings LEFT knee and leg CDI NO N/V deficits of leg, foot and ankle. LEFT Elbow wounds CDI / Approximated. - Additional Data Intake & Output - Last 24 hours: Intake & Output 09/03/18 09/04/18 09/05/18 09/06/18 05:59 05:59 05:59 05:59 Intake Total 4060 5490 50 Output Total 2650 4075 400 Balance 1410 1415 -350 Weight 133 lb 8 oz 129 lb - Labs 09/04/18 03:35 09/05/18 03:40 Diabetes panel 09/05/18 Range/Units 03:40 Sodium 136 (133-145) mmol/L Potassium 3.9 (3.3-5.1) mmol/L Chloride 100 (96-108) mmol/L Carbon Dioxide 22 (22-30) mmol/L BUN 4 L (6-20) mg/dl Creatinine 0.6 L (0.7-1.2) mg/dl Glucose 85 (70-105) mg/dL Calcium 8.2 L (8.6-10.4) mg/dl Calcium panel 09/05/18 Range/Units 03:40 Calcium 8.2 L (8.6-10.4) mg/dl Pituitary panel 09/05/18 Range/Units 03:40 Sodium 136 (133-145) mmol/L Potassium 3.9 (3.3-5.1) mmol/L Chloride 100 (96-108) mmol/L Carbon Dioxide 22 (22-30) mmol/L BUN 4 L (6-20) mg/dl Creatinine 0.6 L (0.7-1.2) mg/dl Glucose 85 (70-105) mg/dL Calcium 8.2 L (8.6-10.4) mg/dl Adrenal panel 09/05/18 Range/Units 03:40 Sodium 136 (133-145) mmol/L Potassium 3.9 (3.3-5.1) mmol/L Chloride 100 (96-108) mmol/L Carbon Dioxide 22 (22-30) mmol/L BUN 4 L (6-20) mg/dl Creatinine 0.6 L (0.7-1.2) mg/dl Glucose 85 (70-105) mg/dL Calcium 8.2 L (8.6-10.4) mg/dl Assessment and Plan (1) Dog bite of left arm Status: Acute Current Visit: No (2) Laceration of left arm with complication Status: Acute Current Visit: No (3) Ulnar nerve abnormality Status: Acute Current Visit: No (4) Infected dog bite Problem details: LEFT LOWER EXTREMITY SKIN AND SUB CUTNEOUS TISSUE along latral knee, upper leg area . Multiple full thickness woundsbetween 2 to 4 CM sizes. No bleeding at this time. NEEDS pulse lavage irrigation, debridement and suturing in OR. Status: Acute Current Visit: No - Narrative A/P Narrative: Assessment: Satisfactory Post Operative Progress. Plan: OK for D/C from wound Care point of view. FULL weight bearing LEFT foot and LEG. 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 seaport planning manager to Notify [facility] Dog Bite and DOG killing cats. ( Stray Dog from [facility] ) RABIES prophylaxis per [facility] policy. F/U at wound care center 09/08/2018 F/U with Dr. Alegria, Plastic Surgeon for LEFT elbow wounds DISCHARGE MEDICATION ANTIBIOTIC: Zyvox 600 MG PO bid FOR 15 DAYS. Pain Medications: Ibuprofen 400 - 600 mg with food PRN 6 Hrly 4 days. Tylenol 650 mg PO PRN 6 Hrly for 5 days. - Time Spent With Patient Total time spent is greater than 50% in coordination of care (as documented) at patient's floor/unit and/or counseling patient: 15 - 24 minutes
--- NOTE | 2018-09-05 10:23 | Operative Note ---
DATE OF OPERATION: 09/04/2018 PREOPERATIVE DIAGNOSIS: Multiple fresh dog bite wounds around the left knee lateral posterior and left upper leg area. POSTOPERATIVE DIAGNOSIS: Multiple fresh dog bite wounds around the left knee lateral posterior and left upper leg area. OPERATION: Multiple wound explorations, debridement, biopsy of devitalized tissue, torn muscle and blood vessels and pulse lavage irrigation with antibiotics. Wounds approximated with 2-0 Prolene and 2-0 Vicryl for the muscles and fascia. SURGEON: Edmar Benítez M.D. SURGICAL FINDINGS: At the completion of procedure, patient had palpable dorsalis pedis and posterior tibial pulses. ANESTHESIA: General endotracheal. ANESTHESIOLOGIST: Obie Velasquez M.D. WOUND DIMENSIONS: For details of wound measurements and procedure, please refer to the patient's EHR. All the measurements are entered in there. 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 He sustained an accidental dog bites on 08/28/2018. This was involving the left elbow area. It was dealt with by Dr. Freddie Alegria, plastic surgeon. The patient underwent debridement and approximation of the wound and skin edges. He had evidence of ulnar nerve injury, probably a neuropraxia or partial nerve fiber tear. This is gradually improving over a period of time. The elbow wounds were left alone. The patient's main reason for admission and surgical exploration was fresh wounds involving the left knee popliteal area and upper leg. PROCEDURE IN DETAIL: After obtaining informed consent, he was taken to the operating room. Anesthetized uneventfully in supine position using endotracheal intubation. Timeout was called. Intravenous antibiotics were already started on the floor. Left lower extremity was widely cleaned, prepped and draped in the standard fashion from the groin up to the toes. Preoperative photographs were taken. The wounds were systematically explored. Devitalized tissue was excised. The torn muscle protruding through the wound was excised along with attached blood vessels to the muscle. We now proceeded to thoroughly clean and irrigate this wound with normal saline. Later, we used pulse lavage irrigation with 3 liters of normal saline containing 50,000 units of bacitracin, 600 mg of clindamycin, and 80 mg gentamicin. The muscles fibers were approximated over the fascia and muscle sheath using interrupted sutures of 2-0 Vicryl. The skin edges were sharply excised, debrided, everted and approximated with interrupted sutures of 2-0 Prolene. Xeroform gauze reinforced with 4 x 4, ABD pad, Kerlix, Coban and Dre bandage were applied. At the completion of procedure, dorsalis pedis and posterior tibial pulses were palpable. Estimated blood loss about 30 mL. Count of swabs, instruments and needles was reported to be correct. VD:pal Job ID: [id number] Doc ID: [id number] Edmar Benítez MD
[2018-09-05] MEDS: NICOTINE 21 MG PATCH TOPICAL SCH (10:32)
[2018-09-05] MEDS: MULTIVIT,THER IRON,CA,FA & MIN 1 TABLET PO SCH (10:32)
[2018-09-05] MEDS: THIAMINE 100 MG TABLET PO SCH (10:32)
[2018-09-05] MEDS: FOLIC ACID 1 MG TABLET PO SCH (10:33)
[2018-09-05] MEDS: ENOXAPARIN 40 MG/0.4 ML SYRINGE SQ SCH (10:33)
--- NOTE | 2018-09-08 13:54 | Surgical Pathology Report ---
HISTOLOGY SPECIMEN MICROSCOPIC DIAGNOSIS SOFT TISSUE, TORN MUSCLE AND BLOOD VESSEL LEFT POSTERIOR LEG, BIOPSY: -- FRAGMENTS OF SKELETAL MUSCLE WITH MIXED ACUTE AND CHRONIC INFLAMMATION AND ASSOCIATED FIBRIN BLOOD CLOT. -- NO MALIGNANCY IDENTIFIED. (EBD:nathanael) PROCEDURAL IMPRESSION Wounds left lateral knee, leg and lower thigh from dog bite. GROSS DESCRIPTION Received in formalin labeled torn muscle and blood vessel left posterior leg, are two fragments of dickens-brown rubbery tissue measuring 1 x 0.8 x 0.5 cm and 1.4 x 1 x 0.6 cm. The larger fragment is bisected. Entirely submitted in one cassette. (RLF:adj) Electronically Signed by: Tigist Allred M.D.
== END 2018-09-05 10:30 | disposition home or self-care (01) | DRG 983 ==
LOC: ED 15:31 → MEDSUR 18:07
PROVIDERS: ADMIT Internal Medicine; ATTEND Internal Medicine